=== PATIENT | male | born 1950 | race Hispanic/Latino ===

== ENCOUNTER 2019-03-28 07:10 | Inpatient (IN) | payer OTHER ==
[~2019-03-28] VITALS: Ht 177.8 cm; Wt 78.7 kg
[2019-03-28] VITALS (29 sets, daily range): BP systolic 88–156; BP diastolic 39–133
[2019-03-28] MEDS ORDERED: CEFAZOLIN SODIUM 1 GM VIAL IVP PRN (08:30)
--- NOTE | 2019-03-28 08:45 | NUR ---
[place] [facility] [place]AL VALVE REPAIR/REPLACEMENT FOR DR PIERSON. MÓNICA.
[2019-03-28] MEDS ORDERED: FERR325T22 PO (08:59)
[2019-03-28] MEDS ORDERED: LEVE500T19 PO (08:59)
[2019-03-28] MEDS ORDERED: FLUT16H NASAL (08:59)
[2019-03-28] MEDS ORDERED: METO25TA6 PO (08:59)
[2019-03-28] MEDS ORDERED: WARF2.5T85 PO (08:59)
[2019-03-28] MEDS ORDERED: ALPR-409 PO (08:59)
[2019-03-28] MEDS ORDERED: PANT40TA25 PO (08:59)
[2019-03-28] MEDS ORDERED: CEFTRIAXONE SODIUM 2 GM VIAL IVP SCH (09:00)
[2019-03-28] MEDS ORDERED: FAMOTIDINE/PF 20 MG/2 ML VIAL IV SCH (09:00)
[2019-03-28 11:03] LABS: MEAN CORPUSCULAR HEMOGLOBIN 33.9 pg (27.0-33.0); MEAN CORPUSCULAR HGB CONC 35.5 g/dL (32.0-36.0); MEAN CORPUSCULAR VOLUME 95.5 fL (79-99); PLATELET COUNT (AUTO) 198 K/uL (130-400); RED BLOOD CELL COUNT(AUTO) 2.82 MIL/uL (4.50-6.20); RED CELL DISTRIBUTION WIDTH 14.3 % (11.0-15.5); WHITE BLOOD COUNT (AUTO) 6.4 K/uL (4.8-10.8)
[2019-03-28 11:41] LABS: INR 1.05 (0.85-1.15); PARTIAL THROMBOPLASTIN TIME 32.7 SEC (26.3-35.5)
[2019-03-28] MEDS: LEVETIRACETAM 500 MG TABLET PO SCH ×2 (11:52→21:00)
[2019-03-28] MEDS: ATORVASTATIN CALCIUM 40 MG TABLET PO SCH (11:52)
[2019-03-28 11:59] LABS: CREATININE 0.8 mg/dL (0.5-1.5)
[2019-03-28 12:07] LABS: ALBUMIN 2.8 g/dL (3.5-5.0); BILIRUBIN,TOTAL 0.8 mg/dL (0.2-1.0); TOTAL PROTEIN, SERUM 6.8 g/dL (6.0-8.3)
[2019-03-28] MEDS ORDERED: NITROGLYCERIN 50 MG/D5% WATER 1 BOT ONE (13:14)
[2019-03-28] MEDS ORDERED: DELNIDO FORMULA 1 BAG IV ONE (13:15)
[2019-03-28] MEDS ORDERED: ROPIVACAINE 0.2% 2MG/ML 100ML VIAL IJ ONE (13:59)
[2019-03-28] MEDS ORDERED: ALBUMIN (HUMAN) 25% 50 ML IV ONE (14:03)
[2019-03-28] MEDS ORDERED: AMINOCAPROIC ACID 250 MG/ML 20 ML VIAL IV ONE ×2 (14:03→14:45)
[2019-03-28] MEDS ORDERED: PHENYLEPHRINE HCL 10 MG/ML 1ML VIAL IV ONE (14:06)
[2019-03-28] MEDS ORDERED: MAGNESIUM SULFATE 1 GM/2 ML VIAL IM ONE (14:06)
[2019-03-28] MEDS ORDERED: CALCIUM CHLORIDE 100 MG/ML 10 ML SYG IVP ONE (14:06)
[2019-03-28] MEDS ORDERED: MANNITOL 25% 50ML VIAL IV ONE (14:06)
[2019-03-28] MEDS ORDERED: SODIUM BICARB 8.4% 50ML SYRINGE IVP ONE (14:06)
[2019-03-28] MEDS ORDERED: HEPARIN SODIUM 1000UNIT/ML 10ML VIAL IV ONE (14:06)
[2019-03-28] MEDS ORDERED: NOREPINEPHRINE BITARTRATE 1 MG/1 ML ML IV ONE (14:45)
[2019-03-28] MEDS ORDERED: ESMOLOL HCL 10 MG/ML 10 ML VIAL ONE (14:45)
[2019-03-28] MEDS ORDERED: PROTAMINE SULFATE 10 MG/ML 25ML VIAL IV ONE (14:45)
[2019-03-28] MEDS ORDERED: HEPARIN SODIUM 1000UNIT/ML 10ML VIAL ONE (14:45)
[2019-03-28] MEDS ORDERED: SODIUM BICARB 50MEQ 50ML VIAL ONE (14:45)
[2019-03-28] MEDS ORDERED: EPINEPHRINE 1 MG/ML AMPULE ONE (14:45)
[2019-03-28] MEDS ORDERED: LIDOCAINE PF 2% 5ML ABBOJECT ONE (14:45)
[2019-03-28] MEDS ORDERED: FENTANYL CITRATE PF 50 MCG/1 ML 20ML VIAL IJ ONE (14:47)
[2019-03-28] MEDS ORDERED: MIDAZOLAM HCL 1 MG/ML 2ML VIAL ONE (14:47)
[2019-03-28] MEDS ORDERED: PROPOFOL 10 MG/ML 20ML VIAL IV ONE (14:47)
[2019-03-28] MEDS ORDERED: ROCURONIUM 10MG/1ML SYR 10 MG/ML ML ONE ×2 (14:48→17:19)
--- NOTE | 2019-03-28 14:51 | NUR ---
PT TAKEN TO SURGERY
[2019-03-28 15:10] LABS: ABG BASE EXCESS 0.8 mmol/L (-2.0-3.0); ABG HCO3 23.6 mmol/L (21.0-28.0); ABG OXYGEN SATURATION 99.1 % (95.0-99.0); ABG PCO2 31 mmHg (35-48)
[2019-03-28] MEDS ORDERED: CEFAZOLIN SODIUM 1 GM VIAL ONE (15:13)
[2019-03-28] MEDS ORDERED: BACITRACIN 50,000 UNIT VIAL ONE (15:41)
[2019-03-28] MEDS ORDERED: SODIUM CHLORIDE 0.9% 500ML 500 ML IV SCH (16:16)
[2019-03-28 16:27] LABS: ABG HCO3 19.3 mmol/L (21.0-28.0); ABG PCO2 28 mmHg (35-48)
[2019-03-28] MEDS ORDERED: TRAMADOL HCL 50 MG TABLET PO PRN ×2 (16:30)
[2019-03-28] MEDS ORDERED: ACETAMINOPHEN 325 MG TAB PO PRN (16:30)
[2019-03-28] MEDS ORDERED: MORPHINE SULFATE 2 MG/ML 1ML SYG IV PRN (16:30)
[2019-03-28] MEDS ORDERED: AMINOCAPROIC ACID 15,000 MG in SODIUM CHLORIDE 0.9% 250 ML IV SCH (16:30)
[2019-03-28] MEDS ORDERED: EPINEPHRINE 8 MG in DEXTROSE 5%-WATER 250 ML IV PRN (16:30)
[2019-03-28] MEDS ORDERED: NOREPINEPHRINE 4MG/NS 250ML 250 ML IV PRN (16:30)
[2019-03-28] MEDS ORDERED: ALBUMIN (HUMAN) 5% 250 ML IV PRN (16:30)
[2019-03-28] MEDS ORDERED: SODIUM CHLORIDE 0.9% 250 ML IV PRN (16:30)
[2019-03-28] MEDS ORDERED: SODIUM CHLORIDE 0.9% 1000ML 1,000 ML IV SCH (16:30)
[2019-03-28] MEDS ORDERED: ACETAMINOPHEN 650 MG SUPPOSITORY RC PRN (16:30)
[2019-03-28] MEDS ORDERED: NITROGLYCERIN 50 MG/D5% WATER 250 BOT IV SCH (16:30)
[2019-03-28] MEDS ORDERED: GLUCAGON 1MG KIT 1 MG ML IM PRN (16:30)
[2019-03-28] MEDS ORDERED: ONDANSETRON HCL 4 MG/2 ML VIAL IV PRN (16:30)
[2019-03-28] MEDS ORDERED: MORPHINE SULFATE 4 MG/1ML SYG IV PRN (16:30)
[2019-03-28] MEDS ORDERED: MAGNESIUM 2GM PREMIX 50ML 50 ML IV PRN (16:30)
[2019-03-28] MEDS ORDERED: POTASSIUM PHOS 15 mMOL+NS250ML 250 ML IV PRN (16:30)
[2019-03-28] MEDS ORDERED: SODIUM CHLORIDE 0.9% 10 ML VIAL IVP PRN (16:30)
[2019-03-28] MEDS ORDERED: DEXTROSE 50%-WATER 50 ML DISP.SYRIN IV PRN (16:30)
[2019-03-28] MEDS ORDERED: PROPOFOL 1000 MG/100 ML 100 ML IV PRN (16:30)
[2019-03-28] MEDS ORDERED: MILRINONE-D5W 20 MG/100 ML 100 ML IV ONE ×2 (16:50→16:51)
[2019-03-28 17:01] LABS: ABG BASE EXCESS 5.9 mmol/L (-2.0-3.0); ABG HCO3 27.7 mmol/L (21.0-28.0); ABG PCO2 30 mmHg (35-48)
[2019-03-28 17:56] LABS: ABG BASE EXCESS -3.4 mmol/L (-2.0-3.0); ABG HCO3 20.7 mmol/L (21.0-28.0); ABG OXYGEN SATURATION 98.8 % (95.0-99.0); ABG PCO2 33 mmHg (35-48)
[2019-03-28] MEDS ORDERED: Q-PUMP 1 EACH IRRIG SCH (18:15)
--- NOTE | 2019-03-28 18:30 | NUR ---
RECEIVED PT FROM SURGERY-SEDATED. ET TUBE INTACT WITH BILATERAL BREATH SOUNDS NOTED. PLACED ON VENT. TRANSITION OF CARE IN PROGRESS. IV DRIPS= EPINEPHRINE/LEVOPHED/MILRINONE/AMIKAR.PLEASE REFER TO V/S, IO'S.
[2019-03-28 19:05] LABS: ABG BASE EXCESS 0.7 mmol/L (-2.0-3.0); ABG HCO3 24.7 mmol/L (21.0-28.0); ABG OXYGEN SATURATION 96.1 % (95.0-99.0); ABG PCO2 37 mmHg (35-48)
[2019-03-28 19:13] LABS: HEMATOCRIT 25.9 % (42-54); MEAN CORPUSCULAR HEMOGLOBIN 32.6 pg (27.0-33.0); MEAN CORPUSCULAR HGB CONC 34.7 g/dL (32.0-36.0); PLATELET COUNT (AUTO) 192 K/uL (130-400); RED BLOOD CELL COUNT(AUTO) 2.76 MIL/uL (4.50-6.20); RED CELL DISTRIBUTION WIDTH 15.2 % (11.0-15.5); WHITE BLOOD COUNT (AUTO) 21.7 K/uL (4.8-10.8)
[2019-03-28] MEDS: POTASSIUM CHLORIDE 20MEQ/100ML 100 ML IV PRN ×3 (19:27→22:08)
[2019-03-28] MEDS: INSULIN REGULAR, HUMAN 3ML 100 UNIT in SODIUM CHLORIDE 0.9% 99 ML IV SCH ×2 (19:27)
[2019-03-28 19:28] LABS: CREATININE 0.9 mg/dL (0.5-1.5); MAGNESIUM 2.2 mg/dL (1.80-2.40); PHOSPHORUS 3.3 mg/dL (2.5-4.9); POTASSIUM 3.3 mmol/L (3.5-5.1)
[2019-03-28 19:29] LABS: INR 1.25 (0.85-1.15); PARTIAL THROMBOPLASTIN TIME 26.4 SEC (26.3-35.5); PROTHROMBIN TIME 13.1 SEC (9.6-11.6)
--- NOTE | 2019-03-28 19:30 | NUR ---
PT ENDORSED TO [facility]
[2019-03-28] MEDS: CALCIUM GLUCONATE 1 GM in SODIUM CHLORIDE 0.9% 50 ML IV PRN (20:21)
[2019-03-28] MEDS ORDERED: PHARMACY COMMUNICATION MISC SCH (20:30)
[2019-03-28] MEDS ORDERED: NOREPINEPHRINE BITARTRATE 8 MG in SODIUM CHLORIDE 0.9% 250 ML IV SCH (20:45)
[2019-03-28] MEDS: FAMOTIDINE/PF 20 MG/2 ML VIAL IV SCH (20:45)
[2019-03-28] MEDS: CEFAZOLIN SODIUM 1 GM VIAL IV SCH (21:34)
[2019-03-28] MEDS: MILRINONE-D5W 20 MG/100 ML 100 ML IV PRN (21:38)
[2019-03-28 22:06] LABS: ABG BASE EXCESS -2.7 mmol/L (-2.0-3.0); ABG HCO3 22.3 mmol/L (21.0-28.0); ABG OXYGEN SATURATION 98.4 % (95.0-99.0); ABG PCO2 39 mmHg (35-48)
[2019-03-28] MEDS: SODIUM BICARB 50MEQ 50ML VIAL IV PRN ×3 (22:08→22:58)
[2019-03-28 22:57] LABS: ABG BASE EXCESS -0.5 mmol/L (-2.0-3.0); ABG HCO3 23.4 mmol/L (21.0-28.0); ABG OXYGEN SATURATION 97.5 % (95.0-99.0); ABG PCO2 36 mmHg (35-48)
[2019-03-29] VITALS (44 sets, daily range): BP systolic 89–185; BP diastolic 35–87
[2019-03-29 00:13] LABS: ABG BASE EXCESS 0.2 mmol/L (-2.0-3.0); ABG HCO3 23.9 mmol/L (21.0-28.0); ABG PCO2 35 mmHg (35-48)
[2019-03-29] MEDS: POTASSIUM CHLORIDE 20MEQ/100ML 100 ML IV PRN ×4 (00:13→04:57)
--- NOTE | 2019-03-29 00:20 | NUR ---
EXTUBATION PT TOLERATED WEANING WELL ABGS WITHIN PARAMETERS. PT WITH STRONG PUBLISHER ASSISTANT AND ABLE TO LIFT AND HOLD HEAD. NIF -30, VC 901. PT EXTUBATED AND PLACED ON 40% CAFM AND ENCOURAGED TO TAKE SLOW DEEP BREATHS. WILL CONTINUE TO MONITOR.
[2019-03-29] MEDS: CALCIUM GLUCONATE 1 GM in SODIUM CHLORIDE 0.9% 50 ML IV PRN (00:58)
[2019-03-29 01:43] LABS: ABG HCO3 25.3 mmol/L (21.0-28.0); ABG OXYGEN SATURATION 98.1 % (95.0-99.0); ABG PCO2 39 mmHg (35-48)
[2019-03-29] MEDS ORDERED: INSULIN HUMULIN R 100 UNIT/ML 3ML ONE (02:42)
[2019-03-29] MEDS ORDERED: SODIUM CHLORIDE 0.9% 100 ML IV ONE (02:42)
[2019-03-29 04:18] LABS: ABG BASE EXCESS 2.4 mmol/L (-2.0-3.0); ABG HCO3 26.8 mmol/L (21.0-28.0); ABG OXYGEN SATURATION 96.8 % (95.0-99.0); ABG PCO2 41 mmHg (35-48)
[2019-03-29 04:23] LABS: HEMATOCRIT 27.8 % (42-54); MEAN CORPUSCULAR HEMOGLOBIN 33.5 pg (27.0-33.0); MEAN CORPUSCULAR HGB CONC 35.6 g/dL (32.0-36.0); PLATELET COUNT (AUTO) 195 K/uL (130-400); RED BLOOD CELL COUNT(AUTO) 2.96 MIL/uL (4.50-6.20); WHITE BLOOD COUNT (AUTO) 20.3 K/uL (4.8-10.8)
[2019-03-29 04:31] LABS: INR 1.11 (0.85-1.15); PARTIAL THROMBOPLASTIN TIME 28.9 SEC (26.3-35.5); PROTHROMBIN TIME 11.6 SEC (9.6-11.6)
[2019-03-29 04:47] LABS: CREATININE 1.1 mg/dL (0.5-1.5); MAGNESIUM 2.4 mg/dL (1.80-2.40); PHOSPHORUS 0.7 mg/dL (2.5-4.9); POTASSIUM 3.8 mmol/L (3.5-5.1)
[2019-03-29] MEDS: MILRINONE-D5W 20 MG/100 ML 100 ML IV PRN (04:59)
[2019-03-29] MEDS ORDERED: PHARMACY COMMUNICATION MISC SCH (05:00)
[2019-03-29] MEDS: INSULIN REGULAR, HUMAN 3ML 100 UNIT in SODIUM CHLORIDE 0.9% 99 ML IV SCH ×2 (05:09)
[2019-03-29] MEDS: CEFAZOLIN SODIUM 1 GM VIAL IV SCH ×2 (05:13→12:49)
--- NOTE | 2019-03-29 05:45 | NUR ---
TRANSFER PT TRANSFERRED TO ROOM 218 AT THIS TIME VIA BED.
[2019-03-29] MEDS: ASPIRIN 81 MG EC TAB PO SCH (08:02)
[2019-03-29] MEDS: ATORVASTATIN CALCIUM 40 MG TABLET PO SCH (08:03)
[2019-03-29] MEDS: LEVETIRACETAM 500 MG TABLET PO SCH ×2 (08:03→21:02)
[2019-03-29] MEDS: FAMOTIDINE/PF 20 MG/2 ML VIAL IV SCH ×2 (08:03→21:02)
--- NOTE | 2019-03-29 10:30 | NUR ---
PATIENT WORKED WITH PHYSICAL THERAPY. PATIENT MOVED FROM BED TO CHAIR. TOLERATED WELL.
--- NOTE | 2019-03-29 16:28 | NUR ---
cm note met with patient and states resides at home with spouse, independent with ambulation and adls. no dme. no services. states can assist at home at time of dc.feels safe to return home. no dc needs. Addendum: 03/29/19 at 1630 by YOLA FRANK CM Amended: Links added.
[2019-03-29] MEDS: WARFARIN SODIUM 5 MG TAB PO SCH (16:47)
--- NOTE | 2019-03-29 20:23 | NUR ---
ASSESSMENT AWAKE.RESTING IN BED ON Q PUMP IN USE FOR PAIN CONTROL. USES PILLOW TO SPLINT CHEST WITH DBC. ASSESSMENT COMPLETED SEE FLOW SHEET FOR RESULTS.ENCOURAGED TO CALL FOR WANTS OR NEEDS. Addendum: 03/29/19 at 2023 by TYLER BARNES RN RN Amended: Links added.
[2019-03-29] MEDS: CEFTRIAXONE SODIUM 2 GM VIAL IVP SCH (21:02)
[2019-03-30] VITALS (18 sets, daily range): BP systolic 120–158; BP diastolic 51–69
[2019-03-30 04:46] LABS: HEMATOCRIT 25.9 % (42-54); MEAN CORPUSCULAR HEMOGLOBIN 33.2 pg (27.0-33.0); MEAN CORPUSCULAR HGB CONC 34.5 g/dL (32.0-36.0); PLATELET COUNT (AUTO) 121 K/uL (130-400); RED CELL DISTRIBUTION WIDTH 15.5 % (11.0-15.5)
[2019-03-30 05:06] LABS: CREATININE 0.8 mg/dL (0.5-1.5); POTASSIUM 4.3 mmol/L (3.5-5.1)
[2019-03-30] MEDS: INSULIN HUMULIN R 100 UNIT/ML 3ML SQ SCH ×4 (07:30→21:00)
[2019-03-30] MEDS: ATORVASTATIN CALCIUM 40 MG TABLET PO SCH (08:29)
[2019-03-30] MEDS: ALLOPURINOL 100 MG TABLET PO SCH (08:29)
[2019-03-30] MEDS: ASPIRIN 81 MG EC TAB PO SCH (08:29)
[2019-03-30] MEDS: PANTOPRAZOLE SODIUM 40 MG TABLET.DR PO SCH (08:29)
[2019-03-30] MEDS: LEVETIRACETAM 500 MG TABLET PO SCH ×2 (08:29→20:26)
--- NOTE | 2019-03-30 17:00 | NUR ---
TRANSFER FROM ICU RECEIVED PT FROM TORY ALVAREZ RN, UP IN CHAIR, A&OX3, CALM COOPERATIVE AND DOES NOT APPEAR TO BE IN ANY DISTRESS NOR ANY NEURO DEFICITS PRESENT, PT DENIES PAIN, SOB, NAUSEA. THERE IS SOME SEROUS DRAINAGE FROM RT IJ SITE, DRESSING REMOVING AND REAPPLIED, TOLERATE WELL, CALL LIGHT WITHIN REACH, FAMILY AT BEDSIDE.
[2019-03-30] MEDS: WARFARIN SODIUM 5 MG TAB PO SCH (18:07)
[2019-03-30] MEDS: CEFTRIAXONE SODIUM 2 GM VIAL IVP SCH (20:27)
[2019-03-31 00:02] VITALS: BP 117/57
[2019-03-31 04:34] VITALS: BP 110/50
[2019-03-31 04:53] LABS: BASOPHILS % (AUTO) 0.4 % (0.0-5.0); EOSINOPHILS % (AUTO) 0.6 % (0.0-8.0); HEMATOCRIT 25.4 % (42-54); LYMPHOCYTES % (AUTO) 9.8 % (21.0-51.0); MEAN CORPUSCULAR HEMOGLOBIN 32.9 pg (27.0-33.0); MEAN CORPUSCULAR HGB CONC 34.8 g/dL (32.0-36.0); MEAN CORPUSCULAR VOLUME 94.6 fL (79-99); MONOCYTES % (AUTO) 5.3 % (3.0-13.0); NEUTROPHILS % (AUTO) 83.9 % (40.0-77.0); PLATELET COUNT (AUTO) 121 K/uL (130-400); RED BLOOD CELL COUNT(AUTO) 2.68 MIL/uL (4.50-6.20); RED CELL DISTRIBUTION WIDTH 15.4 % (11.0-15.5); WHITE BLOOD COUNT (AUTO) 7.7 K/uL (4.8-10.8)
[2019-03-31 05:08] LABS: INR 1.47 (0.85-1.15); PROTHROMBIN TIME 15.3 SEC (9.6-11.6)
[2019-03-31 05:11] LABS: CREATININE 0.8 mg/dL (0.5-1.5); POTASSIUM 3.4 mmol/L (3.5-5.1)
[2019-03-31] MEDS: INSULIN HUMULIN R 100 UNIT/ML 3ML SQ SCH ×4 (05:54→21:00)
[2019-03-31 07:30] VITALS: BP 128/55
[2019-03-31] MEDS: ATORVASTATIN CALCIUM 40 MG TABLET PO SCH (08:40)
[2019-03-31] MEDS: PANTOPRAZOLE SODIUM 40 MG TABLET.DR PO SCH (08:40)
[2019-03-31] MEDS: ASPIRIN 81 MG EC TAB PO SCH (08:40)
[2019-03-31] MEDS: LEVETIRACETAM 500 MG TABLET PO SCH ×2 (08:40→21:53)
[2019-03-31] MEDS: ALLOPURINOL 100 MG TABLET PO SCH (08:40)
[2019-03-31] MEDS: ENOXAPARIN SODIUM 40 MG/0.4 ML SYRINGE SQ SCH (08:40)
[2019-03-31 11:30] VITALS: BP 113/61
[2019-03-31 15:00] VITALS: BP 105/50
[2019-03-31] MEDS: WARFARIN SODIUM 5 MG TAB PO SCH (15:51)
[2019-03-31 20:11] VITALS: BP 106/56
[2019-03-31] MEDS: CEFTRIAXONE SODIUM 2 GM VIAL IVP SCH (21:53)
[2019-04-01] VITALS (7 sets, daily range): BP systolic 106–122; BP diastolic 53–68
[2019-04-01 04:38] LABS: HEMATOCRIT 27.1 % (42-54); MEAN CORPUSCULAR HEMOGLOBIN 33.6 pg (27.0-33.0); MEAN CORPUSCULAR HGB CONC 35.3 g/dL (32.0-36.0); MEAN CORPUSCULAR VOLUME 95.3 fL (79-99); PLATELET COUNT (AUTO) 129 K/uL (130-400); RED BLOOD CELL COUNT(AUTO) 2.84 MIL/uL (4.50-6.20); RED CELL DISTRIBUTION WIDTH 15.1 % (11.0-15.5); WHITE BLOOD COUNT (AUTO) 6.3 K/uL (4.8-10.8)
[2019-04-01 04:48] LABS: INR 1.94 (0.85-1.15); PROTHROMBIN TIME 20.1 SEC (9.6-11.6)
[2019-04-01 04:51] LABS: CREATININE 0.7 mg/dL (0.5-1.5); POTASSIUM 3.1 mmol/L (3.5-5.1)
[2019-04-01] MEDS: INSULIN HUMULIN R 100 UNIT/ML 3ML SQ SCH ×4 (05:31→20:40)
[2019-04-01] MEDS: PANTOPRAZOLE SODIUM 40 MG TABLET.DR PO SCH (07:43)
[2019-04-01] MEDS: ALLOPURINOL 100 MG TABLET PO SCH (07:43)
[2019-04-01] MEDS: ATORVASTATIN CALCIUM 40 MG TABLET PO SCH (07:43)
[2019-04-01] MEDS: ENOXAPARIN SODIUM 40 MG/0.4 ML SYRINGE SQ SCH (07:43)
[2019-04-01] MEDS: LEVETIRACETAM 500 MG TABLET PO SCH ×2 (07:43→20:33)
[2019-04-01] MEDS: ASPIRIN 81 MG EC TAB PO SCH (07:43)
--- NOTE | 2019-04-01 08:00 | NUR ---
ASSESSMENT PT IS AAOX4 DENIES CP DENIES SOB DENIES NV, ASSISTED UP TO CHAIR. BREATHING PATTERN IS EVEN AND UNLABORED, NO VISIBLE SIGNS OF DISTRESS NOTED. ENCOURAGED COUGH AND DEEP BREATHING WITH HEART PILLOW SPLINTING, ENCOURAGED USE OF IS 10XS Q1HR WHILE AWAKE. CALL LIGHT WITHIN REACH.
[2019-04-01] MEDS: ACETAMINOPHEN 325 MG TAB PO PRN (09:08)
[2019-04-01] MEDS ORDERED: POTASSIUM CHLORIDE 20 MEQ ERTAB PO SCH (12:00)
--- NOTE | 2019-04-01 14:34 | NUR ---
RD NOTIFICATION DX: MITRAL VALVE ENDOCARDITIS. HX: TIA, CIRRHOSIS AND VARICES, CHF. DIET: HEART HEALTHY/ CVR DIET. PO: 50-75% AND HAS STEADY APPETITE PER PT. LBM: 03/31. BMI 25.3; CLASSIFIED OVERWEIGHT. S/P DOUBLE VALVE REPLACEMENT. POST OP DAY #3. PT CLAIMS TO BE TAKING COUMADIN FOR MANY YEARS NOW AND WAS INFORMED IN THE PAST ABOUT CONSUMING VITAMIN K FOODS WHILE BEING ON COUMADIN. NO NAUSEA OR VOMITING. DIARRHEA EPISODES SEEM TO BE IMPROVING PER PT. COOKS FOR PT AND PT CONSUMES [address] PROVIDED HEART HEALTHY, COUMADIN AND VITAMIN K NUTRITION THERAPY EDUCATION. PT AND ASKED QUESTIONS AND VERBALIZED UNDERSTANDING. PT IS RECOVERING AND SEEMS TO BE DOING WELL. PT IS ENCOURAGED TO CONSUME A BALANCED DIET AND IS MOTIVATED TO GET BETTER. RD RECOMMENDS TO CONTINUE CURRENT DIET, OFFER ENSURE BID. PT IS INTERESTED IN RECEIVING ENSURE [id number]. RD WILL CONTINUE TO MONITOR AND FOLLOW UP NEEDED. THANK YOU. Addendum: 04/01/19 at [address] RD Amended: Links added.
--- NOTE | 2019-04-01 14:35 | NUR ---
DIET EDUCATION DARLIN PROVIDED HEART HEALTHY, COUMADIN AND VITAMIN K NUTRITION THERAPY EDUCATION. PT AND ASKED QUESTIONS AND VERBALIZED UNDERSTANDING. PT IS RECOVERING AND SEEMS TO BE DOING WELL. PT IS ENCOURAGED TO CONSUME A BALANCED DIET AND IS MOTIVATED TO GET BETTER. Addendum: 04/01/19 at [address] RD Amended: Links added.
[2019-04-01] MEDS: WARFARIN SODIUM 5 MG TAB PO SCH (15:16)
--- NOTE | 2019-04-01 16:34 | NUR ---
DC PLAN VISITED WITH PATIENT. DR. Etienne RECOMMENDED [facility] FOR 3 WEEKS ABX. FORM SIGN DENIA SIGNED INFO SENT TO Rod. Addendum: 04/01/19 at 1634 by CORDELIA MILLER RN CM Amended: Links added.
--- NOTE | 2019-04-01 17:50 | NUR ---
STATUS RESTING SITTING UP IN RECLINER. NO VISIBLE SIGNS OF DISTRESS NOTED, FAMILY AT BEDSIDE, CALL LIGHT WITHIN REACH.
[2019-04-01] MEDS: FUROSEMIDE 20 MG TABLET PO SCH (20:32)
[2019-04-01] MEDS: CEFTRIAXONE SODIUM 2 GM VIAL IVP SCH (20:33)
[2019-04-01] MEDS: POTASSIUM CHLORIDE 20 MEQ ERTAB PO SCH (20:33)
[2019-04-02 03:41] VITALS: BP 102/49
[2019-04-02] MEDS: GUAIFENESIN-DM 200/20 MG 10 ML PO PRN ×2 (04:01→21:17)
[2019-04-02 04:33] LABS: CREATININE 0.7 mg/dL (0.5-1.5); POTASSIUM 3.6 mmol/L (3.5-5.1)
[2019-04-02] MEDS: INSULIN HUMULIN R 100 UNIT/ML 3ML SQ SCH ×4 (06:02→21:00)
[2019-04-02 07:00] VITALS: BP 100/52
[2019-04-02] MEDS: ALLOPURINOL 100 MG TABLET PO SCH (07:31)
[2019-04-02] MEDS: LEVETIRACETAM 500 MG TABLET PO SCH ×2 (07:31→21:12)
[2019-04-02] MEDS: POTASSIUM CHLORIDE 20 MEQ ERTAB PO SCH ×2 (07:31→21:11)
[2019-04-02] MEDS: ASPIRIN 81 MG EC TAB PO SCH (07:31)
[2019-04-02] MEDS: FUROSEMIDE 20 MG TABLET PO SCH ×2 (07:31→21:12)
[2019-04-02] MEDS: ATORVASTATIN CALCIUM 40 MG TABLET PO SCH (07:31)
[2019-04-02] MEDS: PANTOPRAZOLE SODIUM 40 MG TABLET.DR PO SCH (07:31)
[2019-04-02 07:46] LABS: INR 2.43 (0.85-1.15); PROTHROMBIN TIME 24.7 SEC (9.6-11.6)
--- NOTE | 2019-04-02 08:00 | NUR ---
ASSESSMENT PT IS AAOX4 DENIES CP DENIES SOB DENIES NV, ASSISTED UP TO CHAIR. BREATHING PATTERN IS EVEN AND UNLABORED, NO VISIBLE SIGNS OF DISTRESS NOTED. ENCOURAGED COUGH AND DEEP BREATHING WITH HEART PILLOW SPLINTING, ENCOURAGED USE OF IS 10XS Q1HR WHILE AWAKE. CALL LIGHT WITHIN REACH. DR LEWIS ROUNDED, ORDERS RECEIVED. REPORTED INR LEVEL TO DR LEWIS AND FURTHER ORDERS RECEIVED WELL.
[2019-04-02] MEDS ORDERED: PSYLLIUM SEED 1 EACH PACKET PO PRN (09:45)
[2019-04-02] MEDS: MULTIVITAMIN TABLET PO SCH (10:17)
[2019-04-02] MEDS: MECLIZINE HCL 12.5 MG TABLET PO PRN (10:23)
[2019-04-02 11:00] VITALS: BP 96/56
--- NOTE | 2019-04-02 14:58 | NUR ---
COUMADIN 3MG GIVEN WITH WATER. NO COMPLAINTS BY PATIENT.
[2019-04-02] MEDS ORDERED: WARFARIN SODIUM 1 MG TAB PO SCH (15:00)
--- NOTE | 2019-04-02 15:53 | NUR ---
DC PLAN VISITED WITH PATIENT. GAVE PATIENT INFO FOR [facility]. PATIENT HAS BEEN ACCEPTED BY [facility]. JUST NEEDS FAMILY TO FINISH REGISTRATION. PENDING INR TO BE THERAPEUTIC 2.5 TO 3 GOAL. PATIENT HAD 2.43 TODAY. Addendum: 04/02/19 at 1555 by CORDELIA MILLER RN CM Amended: Links added.
[2019-04-02 16:00] VITALS: BP 109/57
--- NOTE | 2019-04-02 16:37 | NUR ---
REFUSED INSULIN FOR GLUCOSE OF 180 WILL RECHECK HS
--- NOTE | 2019-04-02 18:48 | NUR ---
AMBULATION ASSISTED WITH AMBULATION AROUND THE WHOLE FLOOR. NO COMPLAINTS DENIES CHEST PAIN, BACK TO CHAIR. FAMILY IS AT BEDSIDE.
[2019-04-02 19:06] VITALS: BP 120/63
--- NOTE | 2019-04-02 19:36 | NUR ---
ASSESSMENT PATIENT IS RESTING IN CHAIR. IS AT BEDSIDE. PATIENTS HEART PILLOW IS ON LAP. AAOX4. NO COMPLAINTS OF PAIN AT THIS TIME. NO COMPLAINTS OR SIGNS OF SHORTNESS OF BREATH. NO DISTRESS NOTED. PATIENTS CALL LIGHT AND BEDSIDE TABLE IS WITHIN REACH. NO QUESTIONS, CONCERNS, OR NEEDS AT THIS TIME. PATIENT REINFORCED TO CALL FOR ANY NEEDS AND WHEN READY TO GO BACK TO BED.
[2019-04-02] MEDS: CEFTRIAXONE SODIUM 2 GM VIAL IVP SCH (21:11)
[2019-04-02 23:42] VITALS: BP 110/60
--- NOTE | 2019-04-03 | NUR ---
ASSESSMENT PATIENT WAS ASSISTED TO THE BATHROOM, HAD A BM, AND WAS ASSISTED BACK TO BED. PATIENT HAS NO COMPLAINTS OF PAIN AT THIS TIME. COMPLAINTS OF SOME COUGH BUT PRN COUGH MEDICATION IS NOT DUE YET. IS AT BEDSIDE. NO SIGNS OF SHORTNESS OF BREATH. NO SIGNS OF DISTRESS. PATIENTS CALL LIGHT AND BEDSIDE TABLE ARE WITHIN REACH. ALL NEEDS MET AT THIS TIME.
[2019-04-03] MEDS: GUAIFENESIN-DM 200/20 MG 10 ML PO PRN ×2 (03:18→21:43)
[2019-04-03 03:27] VITALS: BP 101/56
--- NOTE | 2019-04-03 04:30 | NUR ---
ASSESSMENT PATIENT WAS ASSISTED TO THE BATHROOM, HAD A BM, AND WAS ASSISTED BACK TO BED. PATIENT HAS NO COMPLAINTS OF PAIN AT THIS TIME. IS AT BEDSIDE. NO SIGNS OF SHORTNESS OF BREATH. COUGH MEDICATION GIVEN AND HAS HELPED WITH PATIENTS COMPLAINT OF COUGH. NO SIGNS OF DISTRESS. PATIENTS CALL LIGHT AND BEDSIDE TABLE ARE WITHIN REACH. ALL NEEDS MET AT THIS TIME.
[2019-04-03 04:43] LABS: INR 2.21 (0.85-1.15); PARTIAL THROMBOPLASTIN TIME 49.4 SEC (26.3-35.5); PROTHROMBIN TIME 22.5 SEC (9.6-11.6)
[2019-04-03] MEDS: INSULIN HUMULIN R 100 UNIT/ML 3ML SQ SCH ×4 (06:37→20:31)
[2019-04-03] MEDS ORDERED: WARFARIN SODIUM 5 MG TAB PO SCH (07:15)
[2019-04-03 07:55] VITALS: BP 115/58
[2019-04-03] MEDS: FUROSEMIDE 20 MG TABLET PO SCH ×2 (09:57→20:14)
[2019-04-03] MEDS: PANTOPRAZOLE SODIUM 40 MG TABLET.DR PO SCH (09:57)
[2019-04-03] MEDS: ASPIRIN 81 MG EC TAB PO SCH (09:57)
[2019-04-03] MEDS: ATORVASTATIN CALCIUM 40 MG TABLET PO SCH (09:57)
[2019-04-03] MEDS: ALLOPURINOL 100 MG TABLET PO SCH (09:57)
[2019-04-03] MEDS: MULTIVITAMIN TABLET PO SCH (09:57)
[2019-04-03] MEDS: LEVETIRACETAM 500 MG TABLET PO SCH ×2 (09:57→20:14)
[2019-04-03] MEDS: POTASSIUM CHLORIDE 20 MEQ ERTAB PO SCH ×2 (09:58→20:22)
[2019-04-03] MEDS: MECLIZINE HCL 12.5 MG TABLET PO PRN (10:02)
--- NOTE | 2019-04-03 10:17 | NUR ---
Delisa LÓPEZ, CALE, IN ROOM SPEAKING WITH PT. AND PT.'S SPOUSE AT BEDSIDE RE:PLAN OF CARE. QUESTIONS ANSWERED BY RESTAURANT DISTRICT MANAGER, VERBALIZED MUTUAL UNDERSTANDING.
[2019-04-03 11:36] VITALS: BP 105/55
[2019-04-03] MEDS ORDERED: FUROSEMIDE 20 MG TABLET PO SCH (14:55)
[2019-04-03 15:15] VITALS: BP 101/51
--- NOTE | 2019-04-03 15:18 | NUR ---
DIET EDUCATION PT WAS EDUCATED REGARDING HEART HEALTHY AND COUMADIN DIET EDUCATION ON 04/01. TODAY 04/03, PT WAS EDUCATED REGARDING LOW SODIUM AND FLUID RESTRICTION NUTRITION EDUCATION. PT AND ASKED QUESTIONS AND SEEMED INTERESTED IN KNOWING THIS INFORMATION. THE COUPLE VERBALIZED UNDERSTANDING. THEY WERE ENCOURAGED TO ASK THE RD IF THEY HAD ANY ADDITIONAL QUESTIONS, COMMENTS OR CONCERNS. HANDOUTS WERE PROVIDED TO PT TO TAKE HOME AND USE REFERENCE. PLEASE NOTIFY RD IF ANY CHANGES REGARDING HIS DIET ARISES. THANK YOU. Addendum: 04/03/19 at [address] Amended: Links added.
[2019-04-03 19:21] VITALS: BP 125/58
[2019-04-03] MEDS: CEFTRIAXONE SODIUM 2 GM VIAL IVP SCH (20:14)
[2019-04-03 23:07] VITALS: BP 112/60
[2019-04-04 03:38] VITALS: BP 102/57
[2019-04-04] MEDS: INSULIN HUMULIN R 100 UNIT/ML 3ML SQ SCH ×3 (06:01→16:30)
[2019-04-04] MEDS: ACETAMINOPHEN 325 MG TAB PO PRN (06:15)
[2019-04-04] MEDS: PANTOPRAZOLE SODIUM 40 MG TABLET.DR PO SCH (07:41)
[2019-04-04] MEDS: ATORVASTATIN CALCIUM 40 MG TABLET PO SCH (07:41)
[2019-04-04] MEDS: FUROSEMIDE 20 MG TABLET PO SCH (07:41)
[2019-04-04] MEDS: ASPIRIN 81 MG EC TAB PO SCH (07:41)
[2019-04-04] MEDS: MULTIVITAMIN TABLET PO SCH (07:41)
[2019-04-04] MEDS: LEVETIRACETAM 500 MG TABLET PO SCH (07:41)
[2019-04-04] MEDS: ALLOPURINOL 100 MG TABLET PO SCH (07:41)
[2019-04-04] MEDS: POTASSIUM CHLORIDE 20 MEQ ERTAB PO SCH (07:42)
[2019-04-04 07:55] VITALS: BP 102/59
[2019-04-04 09:59] LABS: INR 2.44 (0.85-1.15); PROTHROMBIN TIME 24.8 SEC (9.6-11.6)
[2019-04-04 11:13] VITALS: BP 101/60
[2019-04-04] MEDS ORDERED: ALTEPLASE 2 MG/2 ML IV SCH (13:00)
--- NOTE | 2019-04-04 13:14 | NUR ---
DC PLAN PATIENT DID NOT DISCHARGE YESTERDAY DUE TO INR BEING LOWER AND BENCHMARK SAYING PATIENT HAD TO STAY. ONCE PATIENT DISCHARGED WILL CALL [facility] TO LET THEM KNOW OF DISCHARGE. Addendum: 04/04/19 at 1316 by CORDELIA MILLER RN CM Amended: Links added.
[2019-04-04 15:12] VITALS: BP 91/56
[2019-04-04] MEDS ORDERED: WARFARIN SODIUM 2 MG TAB PO SCH (16:00)
--- NOTE | 2019-04-04 17:00 | NUR ---
PICC LINE WITH GOOD BLOOD RETURN AFTER CATHFLO ACTIVASE USED ORDERED. ACTIVASE REMOVED FROM LINE. PICC LINE FLUSHED WITH 20ML NS.
[2019-04-04] MEDS ORDERED: TRAM50TA4 PO (17:43)
[2019-04-04] MEDS ORDERED: ATOR40TA69 PO (17:43)
[2019-04-04] MEDS ORDERED: WARF2TAB57 PO (17:43)
[2019-04-04] MEDS ORDERED: FURO20TA6 PO (17:43)
[2019-04-04] MEDS ORDERED: AEC81 PO (17:43)
[2019-04-04] MEDS: CEFTRIAXONE SODIUM 2 GM VIAL IVP SCH (18:30)
== END 2019-04-04 19:05 | disposition home or self-care (01) | DRG 853 ==
LOC: 2CV 08:09 → 2CH 03-29 05:58 → 2BH 03-29 14:47 → 2DH 03-30 16:13
PROVIDERS: ADMIT Thoracic Surgery (Cardiothoracic Vascular Surgery); ATTEND Thoracic Surgery (Cardiothoracic Vascular Surgery)
PROC: 5A1221Z Performance of Cardiac Output, Continuous (ICD-10-PCS; 2019-03-28)
PROC: 30233N1 Transfusion of Nonautologous Red Blood Cells into Peripheral Vein, Percutaneous Approach (ICD-10-PCS; 2019-03-28)
PROC: 02RG08Z Replacement of Mitral Valve with Zooplastic Tissue, Open Approach (ICD-10-PCS; principal; 2019-03-28 14:49)
PROC: B24BZZ4 Ultrasonography of Heart with Aorta, Transesophageal (ICD-10-PCS; 2019-03-28 14:49)
DX: A40.8 Other streptococcal sepsis (principal); I50.23 Acute on chronic systolic (congestive) heart failure; I33.9 Acute and subacute endocarditis, unspecified; K76.6 Portal hypertension; N17.9 Acute kidney failure, unspecified; I13.0 Hypertensive heart and chronic kidney disease with heart failure and stage 1 through stage 4 chronic kidney disease, or unspecified chronic kidney disease; I42.0 Dilated cardiomyopathy; D62 Acute posthemorrhagic anemia; R79.1 Abnormal coagulation profile; E87.6 Hypokalemia; N18.9 Chronic kidney disease, unspecified; I08.0 Rheumatic disorders of both mitral and aortic valves; E78.5 Hyperlipidemia, unspecified; I25.10 Atherosclerotic heart disease of native coronary artery without angina pectoris; I48.91 Unspecified atrial fibrillation; K29.70 Gastritis, unspecified, without bleeding; K31.89 Other diseases of stomach and duodenum; K57.30 Diverticulosis of large intestine without perforation or abscess without bleeding; K64.0 First degree hemorrhoids; K74.60 Unspecified cirrhosis of liver; M10.9 Gout, unspecified; G40.909 Epilepsy, unspecified, not intractable, without status epilepticus; Z79.01 Long term (current) use of anticoagulants; Z86.73 Personal history of transient ischemic attack (TIA), and cerebral infarction without residual deficits
CPT/HCPCS: 36415; 36430; 71045; 76998; 80048; 80053; 82330; 82435; 82803; 82947; 82948; 83605; 83735; 84100; 84132; 84295; 85018; 85025; 85027; 85347; 85610; 85730; 86850; 86900; 86901; 86922; 87493; 88305; 93318; 94002; 94003; 94150; 97039; A7048; G0378; J0171; J0610; J0690; J0696; J1644; J1650; J1815; J2001; J2150; J2250; J2260; J2370; J2704; J2720; J2795; J2997; J3010; J3475; J3480; J3490; J7030; J7040; P9016; P9045; P9047

== ENCOUNTER 2022-07-18 02:46 | Inpatient (IN) | payer OTHER ==
[~2022-07-18] VITALS: Ht 172.7 cm; Wt 71.1 kg
[~2022-07-18 02:46] MED LIST: AEC81 PO; ATOR40TA69 PO; FERR325T22 PO; FLUT16H NASAL; FURO20TA6 PO; LEVE500T19 PO; PANT40TA54 PO; TRAM50TA4 PO; WARF2TAB57 PO
[2022-07-18] MEDS ORDERED: 0.9%NACL 1000ML 1,000 ML IV ONE ×2 (03:00→03:30)
[2022-07-18 03:14] LABS: BASOPHILS % (AUTO) 0.3 % (0.0-5.0); EOSINOPHILS % (AUTO) 0.1 % (0.0-8.0); HEMATOCRIT 35.5 % (42-54); LYMPHOCYTES % (AUTO) 10.3 % (21.0-51.0); MEAN CORPUSCULAR HEMOGLOBIN 31.3 pg (27.0-33.0); MEAN CORPUSCULAR HGB CONC 33.5 g/dL (32.0-36.0); MEAN CORPUSCULAR VOLUME 93.4 fL (79-99); MONOCYTES % (AUTO) 6.5 % (3.0-13.0); NEUTROPHILS % (AUTO) 82.4 % (40.0-77.0); PLATELET COUNT (AUTO) 271 K/uL (130-400); RED CELL DISTRIBUTION WIDTH 17.2 % (11.0-15.5); WHITE BLOOD COUNT (AUTO) 16.7 K/uL (4.8-10.8)
[2022-07-18 03:19] LABS: APPEARANCE,URINE TURBID (CLEAR); BILIRUBIN,URINE NEGATIVE (NEGATIVE); COLOR,URINE ORANGE (YELLOW); GLUCOSE, URINE (UA) NEGATIVE (NEGATIVE); KETONES,URINE NEGATIVE (NEGATIVE); LEUKOCYTE ESTERASE ,URINE 500 Leu/uL (NEGATIVE); NITRATE,URINE NEGATIVE (NEGATIVE); OCCULT BLOOD,URINE LARGE (NEGATIVE); PH,URINE 5.5 (5.0-8.0); PROTEIN,URINE 100 mg/dL (NEGATIVE); UROBILINOGEN,URINE 0.2 mg/dL (0.2-1.0)
[2022-07-18 03:25] LABS: CREATININE 1.4 mg/dL (0.5-1.5); POTASSIUM 4.3 mmol/L (3.5-5.1)
[2022-07-18 03:27] LABS: BACTERIA,URINE MOD /HPF (None Seen); WBC,URINE TNTC /HPF (0-1)
[2022-07-18 03:30] LABS: ALBUMIN 2.9 g/dL (3.5-5.0); TOTAL PROTEIN, SERUM 7.8 g/dL (6.0-8.3)
[2022-07-18] MEDS ORDERED: ZOSYN 3.375GM +NS 50ML IV ONE (03:30)
[2022-07-18] MEDS ORDERED: VANCOMYCIN 1G VIAL IVPB ONE (03:30)
[2022-07-18] MEDS ORDERED: VANCOMYCIN 1G/250ML KIT 250 ML IV ONE (03:30)
[2022-07-18] MEDS ORDERED: VANCOMYCIN 500MG+NS 100ML 100 ML IV ONE (03:30)
[2022-07-18 04:30] LABS: INR 2.31 (0.85-1.15)
[2022-07-18 04:31] LABS: PARTIAL THROMBOPLASTIN TIME 48.5 SEC (26.3-35.5)
[2022-07-18] MEDS ORDERED: DOCUSATE SODIUM 100 MG CAP PO PRN (05:30)
[2022-07-18] MEDS ORDERED: ACETAMINOPHEN 650 MG SUPPOSITORY RC PRN (05:30)
[2022-07-18] MEDS ORDERED: CLONIDINE HCL 0.1 MG TABLET PO PRN (05:30)
[2022-07-18] MEDS ORDERED: HYDRALAZINE 20MG/ML VIAL IV PRN (05:30)
[2022-07-18] MEDS ORDERED: ONDANSETRON 4MG INJ IVP PRN (05:30)
[2022-07-18] MEDS ORDERED: LABETALOL 20MG SYG IV PRN (05:30)
[2022-07-18] MEDS ORDERED: LACTULOSE 20 GM/30 ML UDCUP PO PRN (05:30)
[2022-07-18] MEDS: 0.9%NACL 1000ML 1,000 ML IV SCH ×4 (05:45→19:43)
[2022-07-18] MEDS ORDERED: DEXTROSE 50%-WATER 50 ML DISP.SYRIN IV PRN (06:00)
[2022-07-18] MEDS ORDERED: KCL 20 MEQ ERTAB PO PRN (06:00)
[2022-07-18] MEDS ORDERED: GLUCAGON 1MG KIT 1 MG ML IM PRN (06:00)
[2022-07-18] MEDS ORDERED: LIDOCAINE HCL-MPF 1% 2ML VIAL IV PRN (06:00)
[2022-07-18] MEDS ORDERED: POTASSIUM CHLORIDE 20MEQ/100ML 100 ML IV PRN (06:00)
[2022-07-18] MEDS: IPRATROPIUM 0.5 MG/2.5 ML INH IH SCH ×3 (06:20→18:26)
[2022-07-18 06:45] LABS: THYROID STIMULATING HORMONE 3.16 uIU/mL (0.36-3.74)
[2022-07-18] MEDS: INSULIN HUMULIN R 100 UNIT/ML 3ML SQ SCH ×4 (07:30→20:55)
[2022-07-18] MEDS ORDERED: ENOXAPARIN SODIUM 40 MG/0.4 ML SYRINGE SQ SCH (09:00)
[2022-07-18] MEDS ORDERED: CEFTRIAXONE 1G VIAL IVP SCH (09:00)
[2022-07-18] MEDS: ASPIRIN 81MG CHEW TAB PO SCH (09:05)
[2022-07-18] MEDS: ZOSYN 3.375GM +NS 50ML IV SCH ×3 (10:30→20:54)
[2022-07-18 11:31] VITALS: BP 102/66
[2022-07-18 12:26] VITALS: BP 110/65
[2022-07-18] MEDS ORDERED: WARF-57 PO (12:55)
[2022-07-18] MEDS ORDERED: METO25TA6 PO (12:55)
[2022-07-18] MEDS ORDERED: ALPR0.25 PO (12:55)
[2022-07-18] MEDS ORDERED: GABA-529 PO (12:55)
[2022-07-18] MEDS ORDERED: MIDO10TA PO (12:55)
[2022-07-18] MEDS ORDERED: ESOM40SU PO (12:55)
[2022-07-18 16:00] VITALS: BP 103/59
[2022-07-18] MEDS: WARFARIN SODIUM 2 MG TAB PO SCH (16:36)
[2022-07-18 17:00] VITALS: BP 103/59
[2022-07-18 20:12] VITALS: BP 109/74
[2022-07-18] MEDS: ACETAMINOPHEN 325 MG TAB PO PRN (21:08)
[2022-07-18 23:45] VITALS: BP 109/70
[2022-07-19] MEDS: IPRATROPIUM 0.5 MG/2.5 ML INH IH SCH ×5 (00:03→23:07)
[2022-07-19] MEDS: 0.9%NACL 1000ML 1,000 ML IV SCH ×3 (01:34→23:10)
[2022-07-19 04:36] LABS: BASOPHILS % (AUTO) 0.4 % (0.0-5.0); EOSINOPHILS % (AUTO) 0.8 % (0.0-8.0); LYMPHOCYTES % (AUTO) 14.4 % (21.0-51.0); MEAN CORPUSCULAR HGB CONC 31.4 g/dL (32.0-36.0); MEAN CORPUSCULAR VOLUME 98.9 fL (79-99); MONOCYTES % (AUTO) 6.3 % (3.0-13.0); NEUTROPHILS % (AUTO) 77.4 % (40.0-77.0); PLATELET COUNT (AUTO) 146 K/uL (130-400); RED BLOOD CELL COUNT(AUTO) 2.61 MIL/uL (4.50-6.20); WHITE BLOOD COUNT (AUTO) 7.6 K/uL (4.8-10.8)
[2022-07-19 04:44] VITALS: BP 119/67
[2022-07-19 04:44] LABS: HEMATOCRIT 25.8 % (42-54)
[2022-07-19 05:00] LABS: ALBUMIN 2.1 g/dL (3.5-5.0); CREATININE 0.6 mg/dL (0.5-1.5); MAGNESIUM 1.6 mg/dL (1.80-2.40); PHOSPHORUS 2.9 mg/dL (2.5-4.9); POTASSIUM 3.5 mmol/L (3.5-5.1); TOTAL PROTEIN, SERUM 5.9 g/dL (6.0-8.3)
[2022-07-19 05:09] LABS: B-TYPE NATRIURETIC PEPTIDE 108 pg/mL (0-100)
[2022-07-19] MEDS: MAGNESIUM 2GM PREMIX 50ML 50 ML IV PRN (05:26)
[2022-07-19] MEDS: POTASSIUM CHLORIDE 10% ELIXIR 20 MEQ/15 ML UDCUP PO PRN ×2 (05:26→09:45)
[2022-07-19] MEDS: ZOSYN 3.375GM +NS 50ML IV SCH ×3 (05:48→21:31)
[2022-07-19] MEDS: INSULIN HUMULIN R 100 UNIT/ML 3ML SQ SCH ×4 (06:52→20:52)
[2022-07-19 08:03] VITALS: BP 125/61
[2022-07-19] MEDS: ACETAMINOPHEN 325 MG TAB PO PRN (09:45)
[2022-07-19] MEDS: ASPIRIN 81MG CHEW TAB PO SCH (09:51)
[2022-07-19 10:06] LABS: HEMATOCRIT 27.3 % (42-54); MEAN CORPUSCULAR HEMOGLOBIN 31.6 pg (27.0-33.0); MEAN CORPUSCULAR HGB CONC 32.6 g/dL (32.0-36.0); MEAN CORPUSCULAR VOLUME 96.8 fL (79-99); RED BLOOD CELL COUNT(AUTO) 2.82 MIL/uL (4.50-6.20); RED CELL DISTRIBUTION WIDTH 16.9 % (11.0-15.5); WHITE BLOOD COUNT (AUTO) 8.1 K/uL (4.8-10.8)
[2022-07-19 10:17] LABS: INR 3.17 (0.85-1.15); PROTHROMBIN TIME 32.4 SEC (9.6-11.6)
[2022-07-19 11:48] VITALS: BP 123/70
[2022-07-19 16:00] VITALS: BP 116/73
[2022-07-19] MEDS ORDERED: MIDODRINE HCL 5 MG TABLET PO SCH (16:30)
[2022-07-19] MEDS: ALPRAZOLAM 0.25 MG TABLET PO PRN (16:53)
[2022-07-19] MEDS: WARFARIN SODIUM 2 MG TAB PO SCH (16:53)
[2022-07-19 19:30] VITALS: BP 114/63
[2022-07-19] MEDS: GABAPENTIN 100 MG CAPSULE PO SCH (21:30)
[2022-07-19] MEDS: MIDODRINE HCL 5 MG TABLET PO SCH (21:31)
[2022-07-19] MEDS: METOPROLOL TARTRATE 25 MG TAB PO SCH (21:31)
[2022-07-19 23:25] VITALS: BP 115/62
[2022-07-20] VITALS (7 sets, daily range): BP systolic 101–129; BP diastolic 50–82
[2022-07-20] MEDS: ALPRAZOLAM 0.25 MG TABLET PO PRN (00:16)
[2022-07-20] MEDS: MIDODRINE HCL 5 MG TABLET PO SCH ×3 (05:36→22:00)
[2022-07-20] MEDS: ZOSYN 3.375GM +NS 50ML IV SCH (05:36)
[2022-07-20] MEDS: IPRATROPIUM 0.5 MG/2.5 ML INH IH SCH ×4 (06:37→23:50)
[2022-07-20] MEDS: INSULIN HUMULIN R 100 UNIT/ML 3ML SQ SCH ×4 (07:30→21:00)
[2022-07-20 09:50] LABS: MEAN CORPUSCULAR HEMOGLOBIN 30.6 pg (27.0-33.0); MEAN CORPUSCULAR HGB CONC 31.9 g/dL (32.0-36.0); MEAN CORPUSCULAR VOLUME 96.1 fL (79-99); RED BLOOD CELL COUNT(AUTO) 2.81 MIL/uL (4.50-6.20); RED CELL DISTRIBUTION WIDTH 16.5 % (11.0-15.5); WHITE BLOOD COUNT (AUTO) 6.5 K/uL (4.8-10.8)
[2022-07-20 10:02] LABS: CREATININE 0.5 mg/dL (0.5-1.5); MAGNESIUM 1.6 mg/dL (1.80-2.40); POTASSIUM 3.2 mmol/L (3.5-5.1)
[2022-07-20] MEDS: ATORVASTATIN 40 MG TABLET PO SCH (10:25)
[2022-07-20] MEDS: ASPIRIN 81MG CHEW TAB PO SCH (10:25)
[2022-07-20] MEDS: PANTOPRAZOLE 40 MG TAB DR PO SCH (10:25)
[2022-07-20] MEDS: MAGNESIUM 2GM PREMIX 50ML 50 ML IV PRN (10:25)
[2022-07-20] MEDS: POTASSIUM CHLORIDE 10% ELIXIR 20 MEQ/15 ML UDCUP PO PRN ×2 (10:27→12:37)
[2022-07-20] MEDS: GABAPENTIN 100 MG CAPSULE PO SCH ×3 (10:27→21:27)
[2022-07-20] MEDS: METOPROLOL TARTRATE 25 MG TAB PO SCH ×2 (10:36→21:27)
[2022-07-20] MEDS ORDERED: IOHEXOL 350 MG/ML 100ML INFUS..BTL IV ONE (14:09)
[2022-07-20] MEDS: AMOX/CLAV 875/125MG TAB PO SCH ×2 (16:14→21:26)
[2022-07-20] MEDS: WARFARIN SODIUM 2 MG TAB PO SCH (16:14)
[2022-07-21 04:12] VITALS: BP 135/52
[2022-07-21 05:22] LABS: HEMATOCRIT 28.5 % (42-54); MEAN CORPUSCULAR HEMOGLOBIN 30.6 pg (27.0-33.0); MEAN CORPUSCULAR HGB CONC 31.6 g/dL (32.0-36.0); MEAN CORPUSCULAR VOLUME 96.9 fL (79-99); RED BLOOD CELL COUNT(AUTO) 2.94 MIL/uL (4.50-6.20); RED CELL DISTRIBUTION WIDTH 16.1 % (11.0-15.5); WHITE BLOOD COUNT (AUTO) 5.8 K/uL (4.8-10.8)
[2022-07-21 05:38] LABS: CREATININE 0.6 mg/dL (0.5-1.5); POTASSIUM 3.2 mmol/L (3.5-5.1)
[2022-07-21] MEDS: MIDODRINE HCL 5 MG TABLET PO SCH ×3 (06:00→22:51)
[2022-07-21] MEDS: IPRATROPIUM 0.5 MG/2.5 ML INH IH SCH ×4 (06:21→23:09)
[2022-07-21 07:30] VITALS: BP 132/55
[2022-07-21] MEDS: INSULIN HUMULIN R 100 UNIT/ML 3ML SQ SCH ×4 (07:30→20:36)
[2022-07-21] MEDS: POTASSIUM CHLORIDE 10% ELIXIR 20 MEQ/15 ML UDCUP PO PRN ×3 (07:45→19:31)
[2022-07-21 11:20] VITALS: BP 112/57
[2022-07-21] MEDS: AMOX/CLAV 875/125MG TAB PO SCH ×2 (13:40→20:37)
[2022-07-21] MEDS: ASPIRIN 81MG CHEW TAB PO SCH (13:40)
[2022-07-21] MEDS: ATORVASTATIN 40 MG TABLET PO SCH (13:40)
[2022-07-21] MEDS: METOPROLOL TARTRATE 25 MG TAB PO SCH ×2 (13:41→20:37)
[2022-07-21] MEDS: PANTOPRAZOLE 40 MG TAB DR PO SCH (13:42)
[2022-07-21] MEDS: GABAPENTIN 100 MG CAPSULE PO SCH ×3 (13:42→20:37)
[2022-07-21] MEDS: WARFARIN SODIUM 2 MG TAB PO SCH (14:25)
[2022-07-21 15:10] VITALS: BP 112/48
[2022-07-21] MEDS ORDERED: LEVOFLOXACIN 750 MG TABLET PO SCH (16:00)
[2022-07-21 19:48] VITALS: BP 126/61
[2022-07-21] MEDS: BALSAM PERU/CASTOR OIL 60 GM TUBE TP SCH (20:38)
[2022-07-21 23:22] LABS: PROTHROMBIN TIME 70.4 SEC (9.6-11.6)
[2022-07-21 23:23] LABS: INR > 7.00 (0.85-1.15)
[2022-07-21 23:57] VITALS: BP 123/67
[2022-07-22 03:27] VITALS: BP 121/61
[2022-07-22] MEDS: MIDODRINE HCL 5 MG TABLET PO SCH ×3 (05:23→20:59)
[2022-07-22] MEDS: INSULIN HUMULIN R 100 UNIT/ML 3ML SQ SCH ×4 (05:53→21:00)
[2022-07-22] MEDS: IPRATROPIUM 0.5 MG/2.5 ML INH IH SCH ×4 (06:42→23:14)
[2022-07-22 07:44] LABS: HEMATOCRIT 27.4 % (42-54); MEAN CORPUSCULAR HEMOGLOBIN 30.5 pg (27.0-33.0); MEAN CORPUSCULAR HGB CONC 32.8 g/dL (32.0-36.0); MEAN CORPUSCULAR VOLUME 92.9 fL (79-99); RED BLOOD CELL COUNT(AUTO) 2.95 MIL/uL (4.50-6.20); RED CELL DISTRIBUTION WIDTH 16.1 % (11.0-15.5); WHITE BLOOD COUNT (AUTO) 6.7 K/uL (4.8-10.8)
[2022-07-22 07:59] LABS: CREATININE 0.6 mg/dL (0.5-1.5); MAGNESIUM 1.4 mg/dL (1.80-2.40); PHOSPHORUS 3.3 mg/dL (2.5-4.9); POTASSIUM 3.9 mmol/L (3.5-5.1)
[2022-07-22 08:00] VITALS: BP 118/67
[2022-07-22 09:02] LABS: INR > 7.00 (0.85-1.15); PROTHROMBIN TIME 70.7 SEC (9.6-11.6)
[2022-07-22] MEDS: PANTOPRAZOLE 40 MG TAB DR PO SCH (09:23)
[2022-07-22] MEDS: AMOX/CLAV 875/125MG TAB PO SCH (09:23)
[2022-07-22] MEDS: ATORVASTATIN 40 MG TABLET PO SCH (09:23)
[2022-07-22] MEDS: ASPIRIN 81MG CHEW TAB PO SCH (09:23)
[2022-07-22] MEDS: GABAPENTIN 100 MG CAPSULE PO SCH ×3 (09:24→20:59)
[2022-07-22] MEDS: BALSAM PERU/CASTOR OIL 60 GM TUBE TP SCH ×2 (09:24→20:59)
[2022-07-22] MEDS: METOPROLOL TARTRATE 25 MG TAB PO SCH ×2 (09:24→20:59)
[2022-07-22 12:00] VITALS: BP 127/57
[2022-07-22] MEDS: MEROPENEM 1 GM VIAL IVP SCH ×2 (12:59→20:58)
[2022-07-22] MEDS ORDERED: PHARMACY COMMUNICATION MISC SCH (15:00)
[2022-07-22 16:00] VITALS: BP_SYST 121; BP_SYST 127; BP_DIAS 59; BP_DIAS 82
[2022-07-22 20:32] VITALS: BP 129/68
[2022-07-23 00:11] VITALS: BP 118/64
[2022-07-23] MEDS: ALPRAZOLAM 0.25 MG TABLET PO PRN (02:31)
[2022-07-23] MEDS: MEROPENEM 1 GM VIAL IVP SCH ×3 (03:52→21:28)
[2022-07-23 04:00] VITALS: BP 118/65
[2022-07-23] MEDS: MIDODRINE HCL 5 MG TABLET PO SCH ×3 (06:00→23:00)
[2022-07-23] MEDS: IPRATROPIUM 0.5 MG/2.5 ML INH IH SCH ×4 (06:13→23:35)
[2022-07-23] MEDS: INSULIN HUMULIN R 100 UNIT/ML 3ML SQ SCH ×3 (06:31→18:00)
[2022-07-23 06:32] LABS: HEMATOCRIT 29.3 % (42-54); MEAN CORPUSCULAR HEMOGLOBIN 29.9 pg (27.0-33.0); MEAN CORPUSCULAR HGB CONC 32.1 g/dL (32.0-36.0); MEAN CORPUSCULAR VOLUME 93.3 fL (79-99); RED BLOOD CELL COUNT(AUTO) 3.14 MIL/uL (4.50-6.20); RED CELL DISTRIBUTION WIDTH 16.2 % (11.0-15.5); WHITE BLOOD COUNT (AUTO) 7.6 K/uL (4.8-10.8)
[2022-07-23 06:35] LABS: CREATININE 0.6 mg/dL (0.5-1.5); POTASSIUM 3.6 mmol/L (3.5-5.1)
[2022-07-23] MEDS: ATORVASTATIN 40 MG TABLET PO SCH (07:52)
[2022-07-23] MEDS: METOPROLOL TARTRATE 25 MG TAB PO SCH ×2 (07:52→21:28)
[2022-07-23] MEDS: ASPIRIN 81MG CHEW TAB PO SCH (07:52)
[2022-07-23] MEDS: PANTOPRAZOLE 40 MG TAB DR PO SCH (07:52)
[2022-07-23] MEDS: BALSAM PERU/CASTOR OIL 60 GM TUBE TP SCH ×2 (07:53→21:29)
[2022-07-23] MEDS: CAPSAICIN CREAM 56.6GM TP SCH (07:53)
[2022-07-23] MEDS: GABAPENTIN 100 MG CAPSULE PO SCH ×3 (07:54→21:28)
[2022-07-23 08:00] VITALS: BP 123/59
[2022-07-23 11:59] VITALS: BP 108/54
[2022-07-23 15:30] VITALS: BP 125/69
[2022-07-23 20:00] VITALS: BP 116/60
[2022-07-24] VITALS (7 sets, daily range): BP systolic 103–160; BP diastolic 59–96
[2022-07-24] MEDS: INSULIN HUMULIN R 100 UNIT/ML 3ML SQ SCH ×4 (00:30→19:01)
[2022-07-24] MEDS: MEROPENEM 1 GM VIAL IVP SCH ×3 (04:21→20:26)
[2022-07-24] MEDS: MIDODRINE HCL 5 MG TABLET PO SCH ×3 (05:29→22:00)
[2022-07-24 05:30] LABS: HEMATOCRIT 29.8 % (42-54); MEAN CORPUSCULAR HEMOGLOBIN 30.4 pg (27.0-33.0); MEAN CORPUSCULAR HGB CONC 32.9 g/dL (32.0-36.0); MEAN CORPUSCULAR VOLUME 92.5 fL (79-99); RED BLOOD CELL COUNT(AUTO) 3.22 MIL/uL (4.50-6.20); RED CELL DISTRIBUTION WIDTH 16.2 % (11.0-15.5); WHITE BLOOD COUNT (AUTO) 7.7 K/uL (4.8-10.8)
[2022-07-24 05:39] LABS: INR 1.86 (0.85-1.15); PROTHROMBIN TIME 19.6 SEC (9.6-11.6)
[2022-07-24 05:40] LABS: CREATININE 0.6 mg/dL (0.5-1.5); POTASSIUM 3.5 mmol/L (3.5-5.1)
[2022-07-24] MEDS: IPRATROPIUM 0.5 MG/2.5 ML INH IH SCH ×4 (06:28→23:52)
[2022-07-24] MEDS: METOPROLOL TARTRATE 25 MG TAB PO SCH ×2 (09:18→20:26)
[2022-07-24] MEDS: ACETAMINOPHEN 325 MG TAB PO PRN (09:18)
[2022-07-24] MEDS: PANTOPRAZOLE 40 MG TAB DR PO SCH (09:18)
[2022-07-24] MEDS: ATORVASTATIN 40 MG TABLET PO SCH (09:18)
[2022-07-24] MEDS: GABAPENTIN 100 MG CAPSULE PO SCH ×3 (09:18→20:26)
[2022-07-24] MEDS: ASPIRIN 81MG CHEW TAB PO SCH (09:18)
[2022-07-24] MEDS: BALSAM PERU/CASTOR OIL 60 GM TUBE TP SCH ×2 (09:19→20:38)
[2022-07-24] MEDS: CAPSAICIN CREAM 56.6GM TP SCH (09:19)
[2022-07-24] MEDS ORDERED: HEPARIN 5,000 UNIT VIAL ONE (14:29)
[2022-07-24] MEDS: WARFARIN SODIUM 5 MG TAB PO SCH (16:02)
[2022-07-24] MEDS: ALBUTEROL 0.083% 2.5 MG/3 ML INH IH PRN ×2 (18:23→23:52)
[2022-07-24 23:11] LABS: INR 1.39 (0.85-1.15); PROTHROMBIN TIME 14.9 SEC (9.6-11.6)
[2022-07-24 23:12] LABS: PARTIAL THROMBOPLASTIN TIME 34.5 SEC (26.3-35.5)
[2022-07-25] MEDS ORDERED: HEPARIN 5,000 UNIT VIAL ONE (00:50)
[2022-07-25] MEDS: ACETAMINOPHEN 325 MG TAB PO PRN (01:03)
[2022-07-25] MEDS: INSULIN HUMULIN R 100 UNIT/ML 3ML SQ SCH ×4 (01:15→23:26)
[2022-07-25] MEDS: MEROPENEM 1 GM VIAL IVP SCH ×3 (04:05→20:15)
[2022-07-25 04:38] VITALS: BP 114/62
[2022-07-25] MEDS: HEPARIN 25,000 UNITS/250ML D5W 250 ML IV SCH ×2 (05:51→23:12)
[2022-07-25] MEDS: MIDODRINE HCL 5 MG TABLET PO SCH ×3 (05:59→20:20)
[2022-07-25] MEDS: IPRATROPIUM 0.5 MG/2.5 ML INH IH SCH ×4 (06:42→23:23)
[2022-07-25 07:12] LABS: HEMATOCRIT 31.7 % (42-54); MEAN CORPUSCULAR HEMOGLOBIN 30.8 pg (27.0-33.0); MEAN CORPUSCULAR HGB CONC 32.2 g/dL (32.0-36.0); MEAN CORPUSCULAR VOLUME 95.8 fL (79-99); RED BLOOD CELL COUNT(AUTO) 3.31 MIL/uL (4.50-6.20); RED CELL DISTRIBUTION WIDTH 16.8 % (11.0-15.5); WHITE BLOOD COUNT (AUTO) 6.6 K/uL (4.8-10.8)
[2022-07-25 07:18] LABS: CREATININE 0.7 mg/dL (0.5-1.5); POTASSIUM 3.4 mmol/L (3.5-5.1)
[2022-07-25 07:23] LABS: INR 1.42 (0.85-1.15); PROTHROMBIN TIME 15.2 SEC (9.6-11.6)
[2022-07-25 07:24] LABS: PARTIAL THROMBOPLASTIN TIME 50.1 SEC (26.3-35.5)
[2022-07-25 08:00] VITALS: BP 104/68
[2022-07-25] MEDS: PANTOPRAZOLE 40 MG TAB DR PO SCH (08:12)
[2022-07-25] MEDS: GABAPENTIN 100 MG CAPSULE PO SCH ×3 (08:14→20:16)
[2022-07-25] MEDS: METOPROLOL TARTRATE 25 MG TAB PO SCH ×2 (08:14→20:16)
[2022-07-25] MEDS: ASPIRIN 81MG CHEW TAB PO SCH (08:15)
[2022-07-25] MEDS: ATORVASTATIN 40 MG TABLET PO SCH (08:15)
[2022-07-25] MEDS: CAPSAICIN CREAM 56.6GM TP SCH (11:23)
[2022-07-25 11:30] VITALS: BP 109/70
[2022-07-25] MEDS: BALSAM PERU/CASTOR OIL 60 GM TUBE TP SCH ×2 (13:29→20:16)
[2022-07-25 14:20] LABS: INR 1.53 (0.85-1.15); PROTHROMBIN TIME 16.3 SEC (9.6-11.6)
[2022-07-25 14:21] LABS: PARTIAL THROMBOPLASTIN TIME 56.1 SEC (26.3-35.5)
[2022-07-25 16:00] VITALS: BP 118/64
[2022-07-25] MEDS: WARFARIN SODIUM 5 MG TAB PO SCH (16:13)
[2022-07-25] MEDS: ALPRAZOLAM 0.25 MG TABLET PO PRN (18:54)
[2022-07-25] MEDS: POTASSIUM CHLORIDE 10% ELIXIR 20 MEQ/15 ML UDCUP PO PRN (20:15)
[2022-07-25 20:22] VITALS: BP 113/66
[2022-07-25 23:51] VITALS: BP 124/65
[2022-07-26] MEDS: POTASSIUM CHLORIDE 10% ELIXIR 20 MEQ/15 ML UDCUP PO PRN (00:50)
[2022-07-26] MEDS: MEROPENEM 1 GM VIAL IVP SCH ×3 (03:19→21:33)
[2022-07-26 04:44] VITALS: BP 109/63
[2022-07-26] MEDS: MIDODRINE HCL 5 MG TABLET PO SCH ×3 (05:15→21:31)
[2022-07-26] MEDS: INSULIN HUMULIN R 100 UNIT/ML 3ML SQ SCH ×3 (05:16→19:03)
[2022-07-26] MEDS: ALPRAZOLAM 0.25 MG TABLET PO PRN (05:24)
[2022-07-26] MEDS: ACETAMINOPHEN 325 MG TAB PO PRN (05:25)
[2022-07-26 05:32] LABS: HEMATOCRIT 29.4 % (42-54); MEAN CORPUSCULAR HEMOGLOBIN 30.8 pg (27.0-33.0); MEAN CORPUSCULAR VOLUME 93.3 fL (79-99); RED BLOOD CELL COUNT(AUTO) 3.15 MIL/uL (4.50-6.20); WHITE BLOOD COUNT (AUTO) 7.6 K/uL (4.8-10.8)
[2022-07-26 05:45] LABS: INR 1.46 (0.85-1.15); PROTHROMBIN TIME 15.6 SEC (9.6-11.6)
[2022-07-26 05:54] LABS: CREATININE 0.6 mg/dL (0.5-1.5); MAGNESIUM 1.4 mg/dL (1.80-2.40); POTASSIUM 3.8 mmol/L (3.5-5.1)
[2022-07-26] MEDS: IPRATROPIUM 0.5 MG/2.5 ML INH IH SCH ×4 (06:32→23:13)
[2022-07-26] MEDS: MAGNESIUM 2GM PREMIX 50ML 50 ML IV PRN (06:44)
[2022-07-26 08:00] VITALS: BP 118/64
[2022-07-26] MEDS: METOPROLOL TARTRATE 25 MG TAB PO SCH ×2 (10:24→21:31)
[2022-07-26] MEDS: ATORVASTATIN 40 MG TABLET PO SCH (10:24)
[2022-07-26] MEDS: GABAPENTIN 100 MG CAPSULE PO SCH ×3 (10:24→21:28)
[2022-07-26] MEDS: ASPIRIN 81MG CHEW TAB PO SCH (10:24)
[2022-07-26] MEDS: PANTOPRAZOLE 40 MG TAB DR PO SCH (10:24)
[2022-07-26] MEDS: CAPSAICIN CREAM 56.6GM TP SCH (10:36)
[2022-07-26] MEDS: BALSAM PERU/CASTOR OIL 60 GM TUBE TP SCH ×2 (10:36→21:31)
[2022-07-26 11:55] VITALS: BP 102/57
[2022-07-26 16:00] VITALS: BP 127/71
[2022-07-26] MEDS: WARFARIN SODIUM 5 MG TAB PO SCH (16:43)
[2022-07-26] MEDS: HEPARIN 25,000 UNITS/250ML D5W 250 ML IV SCH (18:41)
[2022-07-26 20:27] VITALS: BP 125/68
[2022-07-27] VITALS (7 sets, daily range): BP systolic 112–125; BP diastolic 55–81
[2022-07-27 02:14] LABS: INR 1.45 (0.85-1.15); PROTHROMBIN TIME 15.5 SEC (9.6-11.6)
[2022-07-27 02:15] LABS: PARTIAL THROMBOPLASTIN TIME 78.4 SEC (26.3-35.5)
[2022-07-27] MEDS: MAGNESIUM 2GM PREMIX 50ML 50 ML IV PRN (02:51)
[2022-07-27] MEDS: MEROPENEM 1 GM VIAL IVP SCH ×3 (04:05→21:43)
[2022-07-27] MEDS: INSULIN HUMULIN R 100 UNIT/ML 3ML SQ SCH ×4 (05:55→18:26)
[2022-07-27] MEDS: IPRATROPIUM 0.5 MG/2.5 ML INH IH SCH ×2 (06:37→11:42)
[2022-07-27] MEDS: MIDODRINE HCL 5 MG TABLET PO SCH ×3 (06:40→21:43)
[2022-07-27] MEDS: GABAPENTIN 100 MG CAPSULE PO SCH ×3 (09:00→21:44)
[2022-07-27] MEDS: ASPIRIN 81MG CHEW TAB PO SCH (10:58)
[2022-07-27] MEDS: ATORVASTATIN 40 MG TABLET PO SCH (11:09)
[2022-07-27] MEDS: METOPROLOL TARTRATE 25 MG TAB PO SCH ×2 (11:09→21:43)
[2022-07-27] MEDS: CAPSAICIN CREAM 56.6GM TP SCH (11:11)
[2022-07-27] MEDS: PANTOPRAZOLE 40 MG TAB DR PO SCH (11:11)
[2022-07-27] MEDS ORDERED: IPRATROPIUM 0.5 MG/2.5 ML INH IH PRN (12:00)
[2022-07-27] MEDS ORDERED: PHARMACY COMMUNICATION MISC SCH (12:30)
[2022-07-27] MEDS: BALSAM PERU/CASTOR OIL 60 GM TUBE TP SCH ×2 (15:05→21:45)
[2022-07-27] MEDS: WARFARIN SODIUM 2 MG TAB PO SCH (18:17)
[2022-07-27] MEDS: WARFARIN SODIUM 5 MG TAB PO SCH (18:17)
[2022-07-27] MEDS: HEPARIN 25,000 UNITS/250ML D5W 250 ML IV SCH (18:28)
[2022-07-28] MEDS: INSULIN HUMULIN R 100 UNIT/ML 3ML SQ SCH ×4 (00:29→18:13)
[2022-07-28] MEDS: ACETAMINOPHEN 325 MG TAB PO PRN (02:08)
[2022-07-28] MEDS: ALPRAZOLAM 0.25 MG TABLET PO PRN ×2 (02:08→17:59)
[2022-07-28 04:00] VITALS: BP_SYST 127; BP_SYST 146; BP_DIAS 64; BP_DIAS 69
[2022-07-28] MEDS: MEROPENEM 1 GM VIAL IVP SCH ×3 (04:04→20:29)
[2022-07-28 05:56] LABS: INR 1.34 (0.85-1.15); PROTHROMBIN TIME 14.4 SEC (9.6-11.6)
[2022-07-28] MEDS: MIDODRINE HCL 5 MG TABLET PO SCH ×3 (06:06→20:30)
[2022-07-28 07:25] VITALS: BP 136/65
[2022-07-28] MEDS: BALSAM PERU/CASTOR OIL 60 GM TUBE TP SCH ×2 (09:37→20:32)
[2022-07-28] MEDS: PANTOPRAZOLE 40 MG TAB DR PO SCH (09:37)
[2022-07-28] MEDS: GABAPENTIN 100 MG CAPSULE PO SCH ×3 (09:37→20:31)
[2022-07-28] MEDS: ATORVASTATIN 40 MG TABLET PO SCH (09:37)
[2022-07-28] MEDS: ASPIRIN 81MG CHEW TAB PO SCH (09:37)
[2022-07-28] MEDS: METOPROLOL TARTRATE 25 MG TAB PO SCH ×2 (09:37→20:30)
[2022-07-28] MEDS: CAPSAICIN CREAM 56.6GM TP SCH (09:38)
[2022-07-28 11:30] VITALS: BP 130/64
[2022-07-28 14:52] LABS: INR 1.42 (0.85-1.15); PROTHROMBIN TIME 15.2 SEC (9.6-11.6)
[2022-07-28 14:53] LABS: PARTIAL THROMBOPLASTIN TIME 50.5 SEC (26.3-35.5)
[2022-07-28 15:30] VITALS: BP 121/66
[2022-07-28] MEDS: WARFARIN SODIUM 5 MG TAB PO SCH (16:42)
[2022-07-28] MEDS: WARFARIN SODIUM 2 MG TAB PO SCH (16:43)
[2022-07-28] MEDS: HEPARIN 25,000 UNITS/250ML D5W 250 ML IV SCH (18:43)
[2022-07-28 20:00] VITALS: BP 114/62
[2022-07-29] VITALS: BP 105/36
[2022-07-29] MEDS: ALPRAZOLAM 0.25 MG TABLET PO PRN (02:56)
[2022-07-29] MEDS: MEROPENEM 1 GM VIAL IVP SCH ×3 (03:07→20:00)
[2022-07-29 04:00] VITALS: BP 111/64
[2022-07-29 04:54] LABS: HEMATOCRIT 29.1 % (42-54); MEAN CORPUSCULAR HEMOGLOBIN 30.7 pg (27.0-33.0); MEAN CORPUSCULAR HGB CONC 32.6 g/dL (32.0-36.0); MEAN CORPUSCULAR VOLUME 94.2 fL (79-99); RED BLOOD CELL COUNT(AUTO) 3.09 MIL/uL (4.50-6.20); RED CELL DISTRIBUTION WIDTH 16.3 % (11.0-15.5); WHITE BLOOD COUNT (AUTO) 7.6 K/uL (4.8-10.8)
[2022-07-29 05:19] LABS: INR 1.55 (0.85-1.15); PROTHROMBIN TIME 16.5 SEC (9.6-11.6)
[2022-07-29 05:35] LABS: CREATININE 0.6 mg/dL (0.5-1.5); MAGNESIUM 1.6 mg/dL (1.80-2.40); POTASSIUM 3.3 mmol/L (3.5-5.1)
[2022-07-29] MEDS: MIDODRINE HCL 5 MG TABLET PO SCH ×3 (05:53→21:34)
[2022-07-29] MEDS: POTASSIUM CHLORIDE 10% ELIXIR 20 MEQ/15 ML UDCUP PO PRN ×3 (05:56→16:51)
[2022-07-29] MEDS: INSULIN HUMULIN R 100 UNIT/ML 3ML SQ SCH ×4 (05:58→17:18)
[2022-07-29 08:00] VITALS: BP 105/54
[2022-07-29] MEDS: BALSAM PERU/CASTOR OIL 60 GM TUBE TP SCH ×2 (09:43→21:34)
[2022-07-29] MEDS: METOPROLOL TARTRATE 25 MG TAB PO SCH ×2 (09:43→21:00)
[2022-07-29] MEDS: GABAPENTIN 100 MG CAPSULE PO SCH ×3 (09:43→21:00)
[2022-07-29] MEDS: ATORVASTATIN 40 MG TABLET PO SCH (09:43)
[2022-07-29] MEDS: PANTOPRAZOLE 40 MG TAB DR PO SCH (09:43)
[2022-07-29] MEDS: ASPIRIN 81MG CHEW TAB PO SCH (09:43)
[2022-07-29] MEDS: CAPSAICIN CREAM 56.6GM TP SCH (09:44)
[2022-07-29] MEDS ORDERED: MAGNESIUM 2GM PREMIX 50ML 50 ML IV SCH (10:00)
[2022-07-29 12:00] VITALS: BP 120/56
[2022-07-29 14:24] LABS: INR 1.6 (0.85-1.15)
[2022-07-29 14:26] LABS: PARTIAL THROMBOPLASTIN TIME 71.7 SEC (26.3-35.5)
[2022-07-29] MEDS: HEPARIN 25,000 UNITS/250ML D5W 250 ML IV SCH (15:38)
[2022-07-29 16:00] VITALS: BP 131/78
[2022-07-29] MEDS: WARFARIN SODIUM 2 MG TAB PO SCH (16:49)
[2022-07-29] MEDS: WARFARIN SODIUM 5 MG TAB PO SCH (16:50)
[2022-07-29 20:14] VITALS: BP 112/62
[2022-07-29 20:48] LABS: INR 1.66 (0.85-1.15); PROTHROMBIN TIME 17.6 SEC (9.6-11.6)
[2022-07-29 20:49] LABS: PARTIAL THROMBOPLASTIN TIME 57.1 SEC (26.3-35.5)
[2022-07-30 00:50] VITALS: BP 122/64
[2022-07-30] MEDS: INSULIN HUMULIN R 100 UNIT/ML 3ML SQ SCH ×5 (01:11→23:42)
[2022-07-30 02:56] LABS: BASOPHILS % (AUTO) 0.5 % (0.0-5.0); EOSINOPHILS % (AUTO) 0.4 % (0.0-8.0); HEMATOCRIT 28.7 % (42-54); LYMPHOCYTES % (AUTO) 22.6 % (21.0-51.0); MEAN CORPUSCULAR HGB CONC 31.7 g/dL (32.0-36.0); MEAN CORPUSCULAR VOLUME 97.6 fL (79-99); MONOCYTES % (AUTO) 5.6 % (3.0-13.0); NEUTROPHILS % (AUTO) 70.6 % (40.0-77.0); PLATELET COUNT (AUTO) 188 K/uL (130-400); RED BLOOD CELL COUNT(AUTO) 2.94 MIL/uL (4.50-6.20); RED CELL DISTRIBUTION WIDTH 16.5 % (11.0-15.5); WHITE BLOOD COUNT (AUTO) 7.5 K/uL (4.8-10.8)
[2022-07-30 03:09] LABS: ALBUMIN 2.4 g/dL (3.5-5.0); CREATININE 0.5 mg/dL (0.5-1.5); POTASSIUM 3.6 mmol/L (3.5-5.1); TOTAL PROTEIN, SERUM 6.6 g/dL (6.0-8.3)
[2022-07-30 03:37] LABS: INR 1.81 (0.85-1.15); PROTHROMBIN TIME 19.1 SEC (9.6-11.6)
[2022-07-30] MEDS: MEROPENEM 1 GM VIAL IVP SCH ×3 (04:24→21:32)
[2022-07-30 05:10] VITALS: BP 116/60
[2022-07-30] MEDS: POTASSIUM CHLORIDE 10% ELIXIR 20 MEQ/15 ML UDCUP PO PRN ×2 (06:00→18:44)
[2022-07-30] MEDS: MIDODRINE HCL 5 MG TABLET PO SCH ×3 (06:00→21:36)
[2022-07-30] MEDS: ATORVASTATIN 40 MG TABLET PO SCH (07:52)
[2022-07-30] MEDS: PANTOPRAZOLE 40 MG TAB DR PO SCH (07:52)
[2022-07-30] MEDS: ASPIRIN 81MG CHEW TAB PO SCH (07:52)
[2022-07-30] MEDS: GABAPENTIN 100 MG CAPSULE PO SCH ×3 (07:53→21:33)
[2022-07-30 08:00] VITALS: BP 144/85
[2022-07-30] MEDS: METOPROLOL TARTRATE 25 MG TAB PO SCH ×2 (08:00→21:33)
[2022-07-30] MEDS: BALSAM PERU/CASTOR OIL 60 GM TUBE TP SCH ×2 (08:28→21:34)
[2022-07-30] MEDS: CAPSAICIN CREAM 56.6GM TP SCH (08:29)
[2022-07-30 11:42] VITALS: BP 109/56
[2022-07-30] MEDS: ALPRAZOLAM 0.25 MG TABLET PO PRN (13:05)
[2022-07-30] MEDS: HEPARIN 25,000 UNITS/250ML D5W 250 ML IV SCH (14:02)
[2022-07-30 16:00] VITALS: BP 120/62
[2022-07-30] MEDS: WARFARIN SODIUM 5 MG TAB PO SCH (16:11)
[2022-07-30] MEDS: WARFARIN SODIUM 2 MG TAB PO SCH (16:11)
[2022-07-30 20:36] VITALS: BP 107/64
[2022-07-31 00:04] VITALS: BP 128/69
[2022-07-31] MEDS: MEROPENEM 1 GM VIAL IVP SCH ×2 (03:46→11:11)
[2022-07-31 04:24] VITALS: BP 107/67
[2022-07-31] MEDS: MIDODRINE HCL 5 MG TABLET PO SCH ×2 (06:05→13:31)
[2022-07-31] MEDS: INSULIN HUMULIN R 100 UNIT/ML 3ML SQ SCH ×3 (06:21→15:51)
[2022-07-31 06:31] LABS: INR 1.99 (0.85-1.15); PROTHROMBIN TIME 20.9 SEC (9.6-11.6)
[2022-07-31] MEDS: ATORVASTATIN 40 MG TABLET PO SCH (08:08)
[2022-07-31] MEDS: ASPIRIN 81MG CHEW TAB PO SCH (08:08)
[2022-07-31] MEDS: PANTOPRAZOLE 40 MG TAB DR PO SCH (08:08)
[2022-07-31] MEDS: GABAPENTIN 100 MG CAPSULE PO SCH ×2 (08:09→13:32)
[2022-07-31] MEDS: METOPROLOL TARTRATE 25 MG TAB PO SCH (08:09)
[2022-07-31] MEDS: BALSAM PERU/CASTOR OIL 60 GM TUBE TP SCH (08:17)
[2022-07-31] MEDS: CAPSAICIN CREAM 56.6GM TP SCH (08:17)
[2022-07-31 08:28] VITALS: BP 114/58
[2022-07-31 08:31] LABS: INR 2.05 (0.85-1.15); PROTHROMBIN TIME 21.5 SEC (9.6-11.6)
[2022-07-31 08:32] LABS: PARTIAL THROMBOPLASTIN TIME 65.1 SEC (26.3-35.5)
[2022-07-31 10:44] VITALS: BP 110/56
[2022-07-31] MEDS: HEPARIN 25,000 UNITS/250ML D5W 250 ML IV SCH (11:11)
[2022-07-31 16:04] VITALS: BP 112/67
[2022-07-31] MEDS: WARFARIN SODIUM 2 MG TAB PO SCH (16:12)
[2022-07-31] MEDS: WARFARIN SODIUM 5 MG TAB PO SCH (16:12)
== END 2022-07-31 19:42 | DRG 871 ==
LOC: EDH 02:46 → OBSVTOIN 04:45 → EDHIP 04:45 → 2BH 10:50 → 2DH 18:06 → 3AH 07-20 17:27
PROVIDERS: ADMIT Internal Medicine Pulmonary Disease; ATTEND Internal Medicine Pulmonary Disease
PROC: 5A09357 Assistance with Respiratory Ventilation, Less than 24 Consecutive Hours, Continuous Positive Airway Pressure (ICD-10-PCS; principal; 2022-07-18)
DX: A41.9 Sepsis, unspecified organism (principal); J69.0 Pneumonitis due to inhalation of food and vomit; R65.21 Severe sepsis with septic shock; N30.00 Acute cystitis without hematuria; D68.9 Coagulation defect, unspecified; Z20.822 Contact with and (suspected) exposure to COVID-19; I10 Essential (primary) hypertension; I25.10 Atherosclerotic heart disease of native coronary artery without angina pectoris; T45.515A Adverse effect of anticoagulants, initial encounter; R13.10 Dysphagia, unspecified; B96.20 Unspecified Escherichia coli [E. coli] as the cause of diseases classified elsewhere; E78.00 Pure hypercholesterolemia, unspecified; I34.0 Nonrheumatic mitral (valve) insufficiency; I48.91 Unspecified atrial fibrillation; L89.152 Pressure ulcer of sacral region, stage 2; Z79.01 Long term (current) use of anticoagulants; Z95.3 Presence of xenogenic heart valve; Z86.73 Personal history of transient ischemic attack (TIA), and cerebral infarction without residual deficits; Z93.1 Gastrostomy status
CPT/HCPCS: 36415; 70450; 70492; 70551; 71045; 80048; 80053; 81001; 82140; 82607; 82746; 82948; 83605; 83735; 83880; 84100; 84145; 84443; 84484; 85025; 85027; 85610; 85730; 87040; 87071; 87077; 87088; 87186; 87205; 87635; 87804; 92526; 92610; 93005; 94640; 94664; 94667; 94668; 96365; 96368; 97039; 99291; C9803; G0378; J0696; J1644; J1650; J1815; J2185; J2543; J3370; J3475; J7030; Q9967